=== PATIENT | female | born 1980 | race American Indian/Alaskan Native ===

== ENCOUNTER 2017-02-17 22:37 | Emergency (ER) | payer OTHER ==
[2017-02-17 23:03] VITALS: BMI 24.1
[2017-02-17 23:22] VITALS: O2SAT 100
--- NOTE | 2017-02-17 23:23 | ED PDOC ---
Arrival/HPI - General Chief Complaint: Female Genitourinary Time Seen by Provider: 02/17/17 22:55 Historian: Patient - History of Present Illness Narrative History of Present Illness (Text): 02/17/17 23:22 Denzel Hoskins is a 36 year old female, currently 12 weeks , who presents to the ED complaining of vaginal bleeding prior to arrival. Patient states she had an ultrasound 3 weeks ago, which was normal. Patient denies any abdominal cramping, fever, chills, nausea, vomiting, diarrhea, back pain, neck pain, headache, dizziness, or any other complaints. Time/Duration: Other (today) Symptom Onset: Gradual Symptom Course: Unchanged Activities at Onset: Rest, Light Context: Home Past Medical History - Provider Review Nursing Documentation Reviewed: Yes - Infectious Disease Hx of Infectious Diseases: None - Hematological/Oncological Other/Comment: G6PD - Psychiatric Hx Substance Use: No - Surgical History Hx Section: Yes - Anesthesia Hx Anesthesia: Yes Hx Anesthesia Reactions: No Hx Malignant Hyperthermia: No Family/Social History - Physician Review Nursing Documentation Reviewed: Yes Family/Social History: No Known Family HX Smoking Status: Never Smoked Hx Alcohol Use: No Hx Substance Use: No Allergies/Home Meds Allergies/Adverse Reactions: Allergies aspirin Allergy (Verified 02/17/17 23:04) DIZZINESS false anemia Sulfa (Sulfonamide Antibiotics) Allergy (Verified 02/17/17 23:04) DIZZINESS Review of Systems - Physician Review All systems were reviewed & negative as marked: Yes - Review of Systems Constitutional: Normal. absent: Fevers Eyes: Normal ENT: Normal Respiratory: Normal. absent: SOB, Cough Cardiovascular: Normal. absent: Chest Pain Gastrointestinal: Normal. absent: Abdominal Pain, Diarrhea, Nausea, Vomiting Genitourinary Female: Vaginal Bleeding. absent: Dysuria, Frequency, Urine Output Changes Musculoskeletal: Normal. absent: Back Pain, Neck Pain Skin: Normal. absent: Rash Neurological: Normal. absent: Headache, Dizziness Endocrine: Normal Hemo/Lymphatic: Normal Psychiatric: Normal Physical Exam Vital Signs Reviewed: Yes Vital Signs Temp Pulse Resp BP Pulse Ox 02/18/17 01:20 98.0 F 80 18 120/62 100 02/17/17 23:21 98.8 F 82 17 121/66 100 Temperature: Afebrile Blood Pressure: Normal Pulse: Regular Respiratory Rate: Normal Appearance: Positive for: Well-Appearing, Non-Toxic, Comfortable Pain Distress: None Mental Status: Positive for: Alert and Oriented X 3 - Systems Exam Head: Present: Atraumatic, Normocephalic Pupils: Present: PERRL Extroacular Muscles: Present: EOMI Conjunctiva: Present: Normal Mouth: Present: Moist Mucous Membranes Neck: Present: Normal Range of Motion Respiratory/Chest: Present: Clear to Auscultation, Good Air Exchange. No: Respiratory Distress, Accessory Muscle Use Cardiovascular: Present: Regular Rate and Rhythm, Normal S1, S2. No: Murmurs Abdomen: Present: Normal Bowel Sounds. No: Tenderness, Distention, Peritoneal Signs Back: Present: Normal Inspection Upper Extremity: Present: Normal Inspection. No: Cyanosis, Edema Lower Extremity: Present: Normal Inspection. No: Edema Neurological: Present: GCS=15, CN II-XII Intact, Speech Normal Skin: Present: Warm, Dry, Normal Color. No: Rashes Psychiatric: Present: Alert, Oriented x 3, Normal Insight, Normal Concentration Medical Decision Making ED Course and Treatment: 02/17/17 23:22 Impression: 36 year old female complaining of vaginal bleeding tonight. Plan: -- Transvaginal US -- Reassess and disposition Progress Notes: 02/18/17 00:53 Reviewed sono, Transvaginal US shows: Single viable intrauterine as described. No acute findings. 02/18/17 01:05 On re-evaluation, the patient feels better and is in no acute distress. I have discussed the results and plan with the patient, who expresses understanding. Patient in agreement with plan to discharged home. Patient is stable for discharge. Patient was instructed to follow up with physician/clinic in 1-2 days or return if symptoms worsen or new concerning symptoms arise. - RAD Interpretation Narrative RAD Interpretations (Text): Transvaginal US shows: Gestation: Single viable intrauterine with estimated gestational age based upon CRL measurement of 5.1 cm of 11 weeks 6 days. Cardiac activity is seen with a rate of 154 beats per minute. Placenta/amniotic fluid: Cannot be adequately evaluated due to the early gestational age. Uterus/cervix: Unremarkable. No myometrial mass. Cervix measures 4.8 cm in length. Ovaries: Bilateral ovaries are unremarkable. No mass. Free fluid: No free fluid. IMPRESSION: Single viable intrauterine as described. No acute findings. Radiology Orders: 02/17/17 23:36 AGE [US] Stat Lab Associate: Radiologist - Scribe Statement Jeannette Gonzáles Provider Attestation: All medical record entries made by the Scribe were at my direction and personally dictated by me. I have reviewed the chart and agree that the record accurately reflects my personal performance of the history, physical exam, medical decision making, and the department course for this patient. I have also personally directed, reviewed, and agree with the discharge instructions and disposition. Disposition/Present on Arrival - Present on Arrival Any Indicators Present on Arrival: No History of DVT/PE: No History of Uncontrolled Diabetes: No Urinary Catheter: No History of Decub. Ulcer: No History Surgical Site Infection Following: None - Disposition Have Diagnosis and Disposition been Completed?: Yes Diagnosis: Threatened Disposition: HOME/ ROUTINE Disposition Time: 01:00 Condition: GOOD Discharge Instructions (ExitCare): Threatened Miscarriage (ED)
[2017-02-18 01:21] VITALS: BP 120/62; PULSE 80; RESP 18; TEMP 98
--- NOTE | 2017-02-18 08:53 | US ---
PROCEDURE: Limited obstetrical ultrasound examination HISTORY: bleeding COMPARISON: Not available TECHNIQUE: Transabdominal FINDINGS: The examination demonstrates a single live intrauterine gestation. The heart rate is 154 beats per minute. The crown-rump length corresponds to 11 weeks 2 days gestational age. There is no subchorionic hemorrhage. The uterus measures 16.7 x 7.6 x 9.6 cm. There is no uterine mass. The cervix measures 4.8 cm in length and is closed. Right ovary measures 4.2 x 2.5 x 4.2 cm. Normal flow is demonstrated. No mass identified. The left ovary measures 3.0 x 2.6 x 2.8 cm. Normal flow demonstrated. No mass identified. IMPRESSION: Single live intrauterine gestation of approximately 11 weeks 6 days gestational age. No gross abnormality. No subchorionic hemorrhage identified. Cervix closed. Unremarkable ovaries. Preliminary interpretation of this examination was reported by [facility] at 12:52 a.m. on 02/18/2017. There is concurrence of this report with the preliminary interpretation.
== END 2017-02-18 01:22 | disposition home or self-care (01) ==
LOC: ED 22:37
DX: O20.0 Threatened abortion (principal); Z3A.11 11 weeks gestation of pregnancy